=== PATIENT | male | born 1955 ===

== ENCOUNTER 2021-03-13 06:30 | Day surgery (SDC) | payer OTHER ==
[~2021-03-13 06:30] MED LIST: CARDURA XL8 MG PO; LOTREL 10-40 M1 EACH PO; PROSCAR5 MG PO; TAMS0.4C PO; ZIAC 5-6.25 MG1 EACH PO
== END 2021-03-13 18:25 | disposition home or self-care (01) ==
LOC: CIR.AMB 06:30
PROVIDERS: ATTEND Colon & Rectal Surgery
DX: D12.8 Benign neoplasm of rectum (principal); K64.8 Other hemorrhoids; K64.4 Residual hemorrhoidal skin tags; Z20.822 Contact with and (suspected) exposure to COVID-19